=== PATIENT | female | born 1960 | race Caucasian/White ===

== ENCOUNTER 2022-09-01 12:03 | Outpatient (REF) | payer MEDICARE, SELFPAY ==
--- NOTE | ~2022-09-01 | XR_ITS ---
EXAMINATION: XR TIBIA AND FIBULA, RIGHT CLINICAL INFORMATION: Pain in the leg COMPARISON: None TECHNIQUE: AP and lateral views of the right tibia and fibula were obtained. FINDINGS: No fracture or cortical disruption. Appropriate alignment of the knee and ankle. No joint effusion. The soft tissues appear unremarkable. XR/XR tibia fibula RT 2V IMPRESSION: Normal right tibia and fibula.
== END 2022-09-01 12:04 | disposition home or self-care (01) ==
LOC: HO.HMGCX 12:03
DX: M79.604 Pain in right leg (principal)
CPT/HCPCS: 73590